=== PATIENT | male | born 1965 | race Caucasian/White ===

== ENCOUNTER → 2021-05-01 | Outpatient (CLI) | payer OTHER ==
[~2021-05-01] MED LIST: AMBEREN PO; ASA5UEC PO; ATORVASTATIN CA40 MG PO; FISH OIL 1,0001 EAC8 PO; FISH OIL 1,001000 MG PO; LISINOPRIL PO; LISINOPRIL5 MG PO; MAXZIDE-25 MG1 EACH PO; PERCOCET 5-3251 EACH PO; SEE COMMENTS; TRIAMTERENE/HCT1 CA1 PO
== END ==
LOC: M.LAB 10:56
PROVIDERS: ATTEND Anesthesiology
DX: Z01.812 Encounter for preprocedural laboratory examination (principal); Z20.822 Contact with and (suspected) exposure to COVID-19; E87.6 Hypokalemia